=== PATIENT | male | born 1980 | race Caucasian/White ===

== ENCOUNTER 2019-05-24 19:04 | Emergency (ER) | payer OTHER ==
[~2019-05-24] VITALS: Ht 195.6 cm; Wt 102.1 kg
== END 2019-05-24 20:00 | disposition home or self-care (01) ==
LOC: ER 19:04
DX: S01.01XA Laceration without foreign body of scalp, initial encounter (principal); Z88.0 Allergy status to penicillin; W22.8XXA Striking against or struck by other objects, initial encounter
CPT/HCPCS: 12001; 99283-25

== ENCOUNTER 2023-04-10 10:14 | Day surgery (SDC) | payer OTHER ==
[~2023-04-10] VITALS: Ht 195.6 cm; Wt 116.7 kg
[2023-04-10] MEDS ORDERED: Lactated Ringer's 1,000 ML IV ONE (11:00)
[2023-04-10] MEDS ORDERED: Cocaine HCl 4% Solution 4 ML ONE (11:18)
[2023-04-10] MEDS ORDERED: Oxymetazoline 0.05% Nasal Relief Spray 15mL BTL ONE (11:19)
[2023-04-10] MEDS ORDERED: propofoL 20 ML IV ONE ×2 (12:00→12:06)
[2023-04-10] MEDS ORDERED: Midazolam HCl 1MG / ML 2ML Vial ONE (12:03)
[2023-04-10] MEDS ORDERED: Sodium Chloride 0.9% Inj 10 ML Vial XX ONE (12:09)
[2023-04-10] MEDS ORDERED: Lidocaine 1%-Epineph 1:100000 20 ML MDV XX ONE (12:09)
--- NOTE | 2023-04-10 12:31 | NUR ---
04/10/23 1231 Alva Sullivan 5ML OF LIDOCAINE 2% WITH EPI 1:100,000 DILUTED 1:1 WITH NORMAL SALINE TO MAKE LIDOCAINE 1% WITH EPI 1:200,000 FOR INJECTION AT THE OPSITE BY DR GUILLORY. 2ML TOTAL INJECTED.
[2023-04-10 12:53] VITALS: BP 137/101
--- NOTE | 2023-04-10 14:00 | NUR ---
04/10/23 1400 Fredrick Daugherty DIASTOLIC B/P IN 90'S AND LOW 100'S IN SDU. PT DENIED CARDIAC SYMPTOMS--INCLUDING CHEST PAIN, DIZZINESS, AND SHORTNESS OF BREATHE--AND NONE WERE OBSERVED. DR. JOHNSON CONSULTED AND APPROVED D/C. PT WAS INSTRUCTED TO MONITOIR B/P AT HOME AND FOLLOW UP WITH PCP IMMEDIATELY. PT REPORTED 4/10 NOSE PAIN UPON D/C. HE DESCRIBED PAIN TOLERABLE AND EXPRESSED READINESS TO RETURN HOME. HE APPEARED RELAXED AND TALKATIVE.
== END 2023-04-10 13:42 | disposition home or self-care (01) ==
LOC: ORSCSDS 10:14
PROVIDERS: Otolaryngology
PROC: 0NSBXZZ Reposition Nasal Bone, External Approach (ICD-10-PCS; principal; 2023-04-10 11:30)
DX: S02.2XXA Fracture of nasal bones, initial encounter for closed fracture (principal); X58.XXXA Exposure to other specified factors, initial encounter; Y93.67 Activity, basketball
CPT/HCPCS: A9270; C9046; J2250; J2704